=== PATIENT | male | born 1960 | race Caucasian/White ===

== ENCOUNTER 2020-05-25 06:55 | Outpatient (CLI) | payer OTHER, SELFPAY ==
--- NOTE | ~2020-05-25 | US_ITS ---
EXAMINATION: US abdomen complete EXAM DATE: 05/25/2020 07:49 INDICATION: R10.9 - Unspecified abdominal pain. TECHNIQUE: Multiple grayscale and Doppler images of the complete abdomen were obtained (by a technolo gist who performed the scan) and subsequently reviewed. There is no prior study for comparison. FINDINGS: The abdominal aorta is normal in caliber. Visualized portion IVC is patent. The pancreatic head a nd body are normal in appearance. The pancreatic tail is not visualized. There is echogenic liver parenchyma, hepatic steatosis. There are no focal liver lesions identified. There is no evidence of intrahepatic biliary duct dilation. Portal venous flow was seen in the he patopedal, normal direction and has normal Doppler waveform. Common bile duct measures 3-4 mm, which is normal. The gallbladder wall is normal in thickness, with expected amount of distention. No sonographic evidence of pericholecystic fluid. There is no cholel ithiases. Technologist performing exam reports patient did not demonstrate sonographic Schulte's sign. Please note that this sign is less reliable in patients who have received pain medication. Right kidney: There is normal contour and echogenicity. It measures 12.0 x 7.5 x 6.4 centimeters. There are no focal renal lesions identified. There is no hydronephrosis. Left kidney: There is normal contour and echogenicity. It measures 14.7 x 5.6 x 6.2 centimeters. T here are no focal renal lesions identified. There is no hydronephrosis. The spleen measures 13.1 centimeters and is morphologically normal. IMPRESSION: 1. Hepatic steatosis. Reviewed, dictated and finalized at location B. BACKER IMPRESSION: 1. Hepatic steatosis.
--- NOTE | ~2020-05-25 | XR_ITS ---
EXAMINATION: XR chest 2V EXAM DATE: 05/25/2020 07:20 INDICATION: Cough. TECHNIQUE: Frontal and lateral projections of the chest obtained and reviewed. Comparison is made to prior examination from 05/24/2011. FINDINGS: The lungs are clear. There are no pleural effusions. The cardiomediastinal silhouette is within normal limits. There is no pneumothorax suspected. Patient has diffuse idiopathic skeletal h yperostosis (DISH). IMPRESSION: No acute cardiopulmonary findings. Reviewed, dictated and finalized at location B. CTOR OF LOSS PREVENTION
== END 2020-05-25 06:56 | disposition home or self-care (01) ==
PROVIDERS: PCP Family Medicine; Visit Provider Nurse Practitioner Family
DX: R05 Cough (principal); K76.0 Fatty (change of) liver, not elsewhere classified; R10.9 Unspecified abdominal pain
CPT/HCPCS: 71046; 76700

== ENCOUNTER → 2020-06-17 01:51 | Outpatient (CLI) | payer OTHER, SELFPAY ==
[2020-06-17 19:33] LABS: SARS-CoV-2 RNA PCR Negative
== END ==
PROVIDERS: PCP Family Medicine; Visit Provider Internal Medicine Gastroenterology
DX: Z01.812 Encounter for preprocedural laboratory examination (principal); Z20.822 Contact with and (suspected) exposure to COVID-19
CPT/HCPCS: C9803; U0003; U0005

== ENCOUNTER 2020-06-21 01:43 | Day surgery (SDC) | payer OTHER, SELFPAY ==
[2020-06-08 12:44] VITALS: BMI 30.9
[2020-06-21 10:25] VITALS: BP 142/87; PULSE 92; RESP 20; TEMP 36.3; O2SAT 99; BMI 29.8
[2020-06-21 10:43] LABS: Glucose Point of Care 172 (65-105)
[2020-06-21] MEDS: LACTATED RINGERS 1,000 ML 150 ML IV CONT (10:43)
--- NOTE | 2020-06-21 11:09 | WPDANESEPPF ---
Anes - Initial Pre Proc Eval Procedure: Operation Date: 06/21/20 11:30 Proposed Procedures p Esophagogastroduodenoscopy - uSdarshan Higgins MD Date/Time: 06/21/20 11:09 Surgeon: Sudarshan Higgins MD Pre Op Diagnosis: epigastric pain Patient Data Age: 60 Gender: M Height: 6 ft 7 in Weight: 120.3 kg Last Vital Signs Temp 97.3 F L 06/21/20 10:25 Pulse 92 06/21/20 10:25 Resp 20 06/21/20 10:25 BP 142/87 H 06/21/20 10:25 Pulse Ox 99 06/21/20 10:25 Allergies Allergy/AdvReac Type Severity Reaction Status Date / Time Penicillins Allergy Unknown Unknown Verified 06/21/20 10:22 Home Medications Medication Instructions Recorded Confirmed Type allopurinol 300 mg tablet 300 mg PO DAILY #90 tablet 10/25/19 06/21/20 Rx levothyroxine 88 mcg tablet 88 mcg PO DAILY #90 tablet 05/08/20 06/21/20 Rx lisinopril 10 mg tablet 10 mg PO DAILY #30 tablet 05/23/20 06/21/20 Rx omeprazole 40 mg capsule,delayed 40 mg PO DAILY #30 cap 05/23/20 06/21/20 Rx release blood sugar diagnostic #100 ea 05/24/20 05/24/20 Rx blood-glucose meter #1 ea 05/24/20 05/24/20 Rx lancets #100 ea 05/24/20 05/24/20 Rx lancets #100 ea 05/24/20 05/24/20 Rx trazodone 50 mg tablet 50 mg PO .qhs #30 tablet 05/24/20 06/21/20 Rx warfarin 2 mg tablet 2 mg PO DAILY #90 tablet 05/24/20 05/24/20 Rx warfarin 6 mg tablet 6 mg PO DAILY #90 tablet 05/24/20 05/24/20 Rx empagliflozin 10 mg tablet 10 mg PO DAILY #90 tablet 06/21/20 Rx Laboratory Tests 06/21/20 10:39 POC Capillary Glucose 172 mg/dl H mg/dl (65-105) Patient hx anesthesia problems: none Family hx anesthesia problems: none PMFSH Past Medical History Medical History BMI 30.0-30.9,adult BMI 31.0-31.9,adult Congestion of nasal sinus Family History Family History Father , Stage 4 cancer No problems noted. Mother No problems noted. 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 Questions were solicited and answers provided to the satisfaction of the patient/family/POA.
--- NOTE | 2020-06-21 11:19 | PM.HPGS ---
History of Present Illness History of Present Illness Consent: Risks, benefits, and alternatives have been discussed and questions answered. Patient agrees to proceed with procedure. Chief complaint: epigastric pain Narrative: Ziggy Dorsey is a 60 year old male with epigastric pain after eating spicy food or drinking alcohol, abdominal ultrasound only fatty liver, blood work unremarkable Review of Systems Constitutional: Constitutional: Denies headache(s) and Denies weakness Eyes: Eyes: Denies blurry vision ENT: Reports Normal hearing present, Denies headache(s) and Denies neck pain Cardiovascular: Cardiovascular: Denies chest pain and Denies dyspnea Respiratory: Respiratory: Denies dyspnea Gastrointestinal: Gastrointestinal: Reports no additional gastrointestinal complaints Genitourinary: Genitourinary: Denies dysuria Musculoskeletal: Musculoskeletal: Denies neck pain Integumentary/Breasts: Skin/Breast: Denies dry skin Neurologic: Reports Normal hearing present, Denies headache(s) and Denies weakness Psychiatric: Psychiatric: Denies anxiety Endocrine: Endocrine: Denies change in body appearance Hematologic/Lymphatic: Hematologic/Lymphatic: Denies easy bleeding Allergic/Immunologic: Allergic/Immunologic: Denies urticaria PMFSH Past Medical History Medical History BMI 30.0-30.9,adult BMI 31.0-31.9,adult Congestion of nasal sinus Family History Family History Father , Stage 4 cancer No problems noted. Mother No problems noted. 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 Gender identity (if verbalized by the patient): Male Meds Home Medications and Allergies Home Medications Medication Instructions Recorded Confirmed Type allopurinol 300 mg tablet 300 mg PO DAILY #90 tablet 10/25/19 06/21/20 Rx levothyroxine 88 mcg tablet 88 mcg PO DAILY #90 tablet 05/08/20 06/21/20 Rx lisinopril 10 mg tablet 10 mg PO DAILY #30 tablet 05/23/20 06/21/20 Rx omeprazole 40 mg capsule,delayed 40 mg PO DAILY #30 cap 05/23/20 06/21/20 Rx release blood sugar diagnostic #100 ea 05/24/20 05/24/20 Rx blood-glucose meter #1 ea 05/24/20 05/24/20 Rx lancets #100 ea 05/24/20 05/24/20 Rx lancets #100 ea 05/24/20 05/24/20 Rx trazodone 50 mg tablet 50 mg PO .qhs #30 tablet 05/24/20 06/21/20 Rx warfarin 2 mg tablet 2 mg PO DAILY #90 tablet 05/24/20 05/24/20 Rx warfarin 6 mg tablet 6 mg PO DAILY #90 tablet 05/24/20 05/24/20 Rx empagliflozin 10 mg tablet 10 mg PO DAILY #90 tablet 06/21/20 Rx Allergies Allergy/AdvReac Type Severity Reaction Status Date / Time Penicillins Allergy Unknown Unknown Verified 06/21/20 10:22 Vital Signs Vital Signs - 24 hr 06/21/20 10:25 Temperature 97.3 F L Pulse Rate 92 Respiratory Rate 20 Blood Pressure 142/87 H Pulse Oximetry 99 Exam Const: General: comfortable and no acute distress HENMT: General nose exam: Normal nares present Eyes: General: appearance normal, both eyes and all related structures Neck: Neck: no JVD Resp: Auscultation: clear to auscultation bilaterally Cardio: Rate: regular rate Rhythm: regular rhythm GI: Inspection: non-distended GI Palp: Yes Soft to palpation Skin: General skin exam: normal color Neuro: General: gait normal Speech: normal speech Extrem: General: normal to inspection Psych: Mental Status: mental status grossly normal Assessment and Plan Assessment and plan (1) Epigastric pain: Code(s): R10.13 - Epigastric pain Status: Acute Assessment and Plan: egd with rene dasilva
[2020-06-21 11:35] VITALS: BP 135/80; PULSE 81; RESP 28; O2SAT 93
[2020-06-21 11:45] VITALS: BP 133/90; PULSE 77; RESP 27; O2SAT 95
[2020-06-21 11:55] VITALS: BP 142/75; PULSE 74; RESP 17; O2SAT 97
== END 2020-06-21 12:14 | disposition home or self-care (01) ==
PROVIDERS: PCP Family Medicine; Visit Provider Internal Medicine Gastroenterology
PROC: 0DJ08ZZ Inspection of Upper Intestinal Tract, Via Natural or Artificial Opening Endoscopic (ICD-10-PCS; CPT 43235; principal; 2020-06-21 11:30)
DX: K22.70 Barrett's esophagus without dysplasia (principal); K44.9 Diaphragmatic hernia without obstruction or gangrene; K29.70 Gastritis, unspecified, without bleeding; K76.0 Fatty (change of) liver, not elsewhere classified; Z79.01 Long term (current) use of anticoagulants; Z79.84 Long term (current) use of oral hypoglycemic drugs
CPT/HCPCS: 43239; 88305; 88313; J2704; J7120

== ENCOUNTER → 2021-02-13 08:30 | Outpatient (CLI) | payer OTHER, SELFPAY ==
[2021-02-13 20:05] LABS: SARS-CoV-2 RNA PCR Negative
== END ==
PROVIDERS: PCP Nurse Practitioner Adult Health; Visit Provider Nurse Practitioner Adult Health
DX: R09.81 Nasal congestion (principal); Z20.822 Contact with and (suspected) exposure to COVID-19
CPT/HCPCS: C9803; U0003; U0005

== ENCOUNTER → 2022-02-28 12:52 | Outpatient (CLI) | payer OTHER, MEDICAID, SELFPAY ==
--- NOTE | ~2022-02-28 | MR_ITS ---
EXAMINATION: MR venography brain DATE: 02/28/2022 14:42 INDICATION: Optic nerve edema. TECHNIQUE: Magnetic resonance venography (MRV) of the brain was performed without intravenous contras t. Maximum intensity projection 3D-reconstructions were obtained. COMPARISON: None. FINDINGS: The superior sagittal sinus, vein of Bradly, straight sinus, transverse sinuses, occipital sinus, and oblique sinuses are normal. IMPRESSION: 1. Normal venogram. Reviewed, dictated and finalized at location A. HER IMPRESSION: 1. Normal venogram.
--- NOTE | ~2022-02-28 | MR_ITS ---
EXAMINATION: MR orbits face neck wo/w con DATE: 02/28/2022 15:00 INDICATION: Optic nerve edema. TECHNIQUE: Magnetic resonance imaging (MRI) of the orbits was performed without and with 10 mL MultiH ance intravenous contrast. COMPARISON: None. FINDINGS: There are scattered areas of nonspecific increased T2-weighted signal intensity in the cere bral white matter, which is within normal limits for the patient's age. There is no intracranial hemo rrhage or acute infarct. There is a 10 x 5 mm mass of fat at the hypothalamus, consistent with a lipo ma. The ventricles are normal in size. There is mucosal thickening in sphenoid sinus. The optic nerve s, optic chiasm, extraocular muscles, and ocular globes are normal. The mastoid air cells are normal. IMPRESSION: 1. Normal orbits. 2. 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 Reviewed, dictated and finalized at location A. AL HURRICANE HUNTER
== END ==
PROVIDERS: PCP Internal Medicine
DX: H47.10 Unspecified papilledema (principal)
CPT/HCPCS: 70543; 70544; A9577

== ENCOUNTER → 2022-03-19 11:18 | Outpatient (CLI) | payer OTHER, SELFPAY ==
--- NOTE | ~2022-03-19 | CT_ITS ---
EXAMINATION: CT brain wo con DATE: 03/19/2022 11:36 INDICATION: Papilledema; rule out intracranial mass TECHNIQUE: Computed tomography (CT) of the head was performed without intravenous contrast. The mA wa s adjusted according to patient size. Iterative reconstruction technique was employed. Exam dose: 59 9.57 mGy-cm total exam DLP. COMPARISON: 02/28/2022 MR orbits, face, neck FINDINGS: No intracranial mass lesion or hemorrhage, midline shift or mass effect is evident. Moderat e cerebral volume loss, most prominent in the frontal lobes. Mild cerebellar volume loss. Bilateral carotid siphon internal carotid artery calcifications. There is nonspecific diminished atte nuation of the cerebral white matter, likely due to chronic small vessel ischemic changes. No subdural or epidural hematoma is detected. No orbital mass lesion is detected. Approximately 1.5 cm polyp or mucous retention cyst of the left sphenoid sinus. The included paranasa l sinuses and mastoid air cells are otherwise unremarkable. No fracture or bone destruction of the cranial vault. IMPRESSION: No intracranial mass lesion is detected Cerebral atherosclerosis and chronic small vessel ischemic changes of the cerebral white matter Cerebral and cerebellar volume loss, involving particularly the frontal lobes Approximately 1.5 cm sphenoid sinus polyp or mucous retention cyst Reviewed, dictated and finalized at Location A. Reviewed, dictated and finalized at location L. MIDWIFE IMPRESSION: No intracranial mass lesion is detected Cerebral atherosclerosis and chronic small vessel ischemic changes of the cereb ral white matter Cerebral and cerebellar volume loss, involving particularly the frontal lobes Approximately 1.5 cm sphenoid sinus polyp or mucous retention cyst
== END ==
PROVIDERS: PCP Internal Medicine
DX: H47.10 Unspecified papilledema (principal); I67.2 Cerebral atherosclerosis; J33.8 Other polyp of sinus
CPT/HCPCS: 70450

== ENCOUNTER 2022-05-17 09:30 | Outpatient (RCR) | payer OTHER, SELFPAY ==
[2022-05-16 11:43] VITALS: BMI 32.7
[2022-05-16 14:05] VITALS: BMI 32.7
== END 2022-05-17 12:04 | disposition home or self-care (01) ==
LOC: ANHDMC 09:30
PROVIDERS: PCP Internal Medicine; Visit Provider Internal Medicine Endocrinology, Diabetes & Metabolism
DX: E11.65 Type 2 diabetes mellitus with hyperglycemia (principal); Z71.3 Dietary counseling and surveillance; Z71.89 Other specified counseling
CPT/HCPCS: 97802; G0108

== ENCOUNTER 2024-03-04 13:50 | Outpatient (CLI) | payer OTHER, SELFPAY ==
--- NOTE | ~2024-03-04 | XR_ITS ---
Clinical Indication: Cough PA and lateral views of the chest: Comparison: 05/25/2020 Findings: The lungs are clear, without evidence of focal consolidation or pleural effusion. Cardiome diastinal silhouette is within normal limits. Bones and soft tissues are unremarkable. Impression: Normal chest. Reviewed, dictated and finalized at location . NER OPERATOR Impression: Normal chest.
== END 2024-03-04 13:51 | disposition home or self-care (01) ==
PROVIDERS: PCP Nurse Practitioner Adult Health; Visit Provider Nurse Practitioner Adult Health
DX: E03.9 Hypothyroidism, unspecified (principal); R05.9 Cough, unspecified
CPT/HCPCS: 36415; 71046; 84443

== ENCOUNTER 2024-04-13 07:59 | Outpatient (CLI) | payer OTHER, SELFPAY ==
--- NOTE | ~2024-04-13 | CT_ITS ---
CT of the Abdomen: Indication: Adrenal gland disorder Technique: 2.5 mm axial scans were obtained through the abdomen prior to and following intravenous a dministration of 100 cc of Omnipaque 350. Dose reduction technique was used on this scan by utilizing automated exposure control and iterative reconstruction technique. The dose-length product (DLP) was 2225.74 mGy-cm. Findings: Scans through the lung bases are unremarkable. The liver, spleen, pancreas, right adrenal and, and kidneys are within normal limits. Gallbladder abs ent. 2 cm left adrenal gland nodule demonstrates Hounsfield units of 0 on precontrast images, compati ble with benign adenoma. No evidence of aortic aneurysm. No lymphadenopathy. Visualized bowel loops are unremarkable.. No ascites. Impression: 2 cm left adrenal adenoma. Reviewed, dictated and finalized at [facility]. HANDISE COORDINATOR Impression: 2 cm left adrenal adenoma.
--- NOTE | ~2024-04-13 | MR_ITS ---
EXAMINATION: MR brain/brain stem wo/w con DATE: 04/13/2024 09:01 INDICATION: Disorder of pituitary gland TECHNIQUE: Magnetic resonance imaging (MRI) of the brain and brainstem was performed without and with 20 mL Multihance intravenous contrast. Whole-brain sequences included sagittal T1-weighted FSE, axia l diffusion-weighted FS EPI, axial T2*-weighted GRE, axial T2-weighted FLAIR Propeller, and axial T2- weighted Propeller. Small [id number] sequences included sagittal and coronal T1-weighted FSE cente red at the pituitary. Postcontrast sequences included small [id number] coronal T1-weighted FSE in a time course and sagittal T1-weighted FSE and whole-brain axial T1-weighted FSE. Apparent diffusion coefficient (ADC) maps were created. COMPARISON: Head CT dated 03/19/2022 and brain MR dated 02/28/2022 FINDINGS: There are no areas of restricted diffusion to suggest acute infarction. No intracranial hemorrhage. N o significant change in a 10 x 6 x 5 mm T1 hyperintense lipoma at the hypothalamus with coarse benign macroscopic fat attenuation and associated small region of calcification on the prior CT. No other i ntracranial mass lesion. The pituitary appears normal within the sella with no abnormally enhancing o r hypoenhancing lesions. The pituitary stalk remains midline. There are scattered areas of nonspecifi c increased T2-weighted signal intensity in the cerebral white matter, predominantly involving the de ep and periventricular white matter. There are no intraparenchymal signal abnormalities seen on the o ther pulse sequences. The ventricles are symmetric and normal in size. There are no abnormal extra-ax ial fluid collections. Flow voids are seen in the cerebral arteries on the T2-weighted sequences cons istent with their expected patency. Mild mucosal thickening in the bilateral ethmoid, maxillary and s phenoid sinuses with chronic peripherally enhancing mucous retention cyst in the left sphenoid sinus. Visualized orbits and soft tissues are unremarkable. There are no areas of abnormal enhancement on t he post contrast images. IMPRESSION: 1. Normal for age brain with mild scattered white matter T2 hyperintensity consistent with chronic sm all vessel ischemic disease. 2. Normal appearing pituitary with no evident hyperenhancing/hypoenhancing lesions and with midline p ituitary stalk. 3. Chronic left sphenoid sinus mucous retention cyst. Reviewed, dictated and finalized at location A. LE LABELER IMPRESSION: 1. Normal for age brain with mild scattered white matter T2 hyperintensity cons istent with chronic small vessel ischemic disease. 2. Normal appearing pituitary with no evident hyperenhancing/hypoenhancing lesi ons and with midline pituitary stalk. 3. Chronic left sphenoid sinus mucous retention cyst.
[2024-04-13 08:25] LABS: Estimated Glomerular Filt Rate > 60
== END 2024-04-13 08:00 | disposition home or self-care (01) ==
LOC: MICIMG 08:00
PROVIDERS: PCP Nurse Practitioner Adult Health; Visit Provider Internal Medicine Endocrinology, Diabetes & Metabolism
DX: J34.1 Cyst and mucocele of nose and nasal sinus (principal); R90.82 White matter disease, unspecified; E27.9 Disorder of adrenal gland, unspecified
CPT/HCPCS: 70553; 74170; A9577; Q9967

== ENCOUNTER 2024-11-02 10:39 | Outpatient (CLI) | payer OTHER, SELFPAY ==
--- NOTE | ~2024-11-02 | XR_ITS ---
EXAM/ PROCEDURE: XR elbow LT 2V, XR forearm LT 2V - 11/02/2024 10:42 CDT HISTORY: 64 years old Male with W19.XXXA - Unspecified fall, initial encounter COMPARISON: None available TECHNIQUE: Three view(s) FINDINGS/ IMPRESSION: There are no fractures or dislocations.Joint space narrowing, subchondral sclerosis, subchondral cyst formation and osteophyte formation, compatible with mild osteoarthritis. Reviewed, dictated and finalized at location A.
--- OUTSIDE RECORDS SUMMARY | 2024-11-02 11:13 | XMS_ITS | Encounter Summary ---
Author Organization [facility] - [facility] Address [facility] [place] [address] Care Team Providers Care Mushroom Sorter Grader Name Role Phone None, Provider Primary Care Provider Amrita ble Encounter Details Date Type Department Care Team (Latest Contact Info) Description 01/02/2022 PT [employer] Message Enc [facility] Medical Group Multispecialty Care - [address] [place] [address] Mychart, [facility] Provider Reschedule Appointment Social History Tobacco Use Types Packs/Day Years Used Date Smoking Tobacco: Never Smokeless Tobacco: Never Comments:counseled by Dr Iveth manzanares Alcohol Use Standard Drinks/Week Comments Yes 0 (1 standard drink = 0.6 oz pur e alcohol) on occas PHQ-2 Answer Date Recorded PHQ-2 Score - If the patient scores above 3, please move on to questions 3-9 0 12/27/2021 Sex and Gender Information Value Date Recorded Sex Assigned at Not on file 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 No / Unsure 12/27/2021 12:28 PM CDT documented as of this encounter Functional Status * RETIRED Are you deaf or do you have serious difficulty hearing Answer Date of Assessment Author Status No 05/23/2021 5:23 PM CAN FILLING AND CLOSING MACHINE TENDER Activ e * RETIRED Are you blind or do you have serious difficulty seeing, even when wearing glasses? Answer Date of Assessment Author Status No 05/23/2021 5:23 PM CAN FILLING AND CLOSING MACHINE TENDER Activ e * Do you have serious difficulty walking or climbing stairs? Answer Date of Assessment Author Status No 05/23/2021 5:23 PM Tish Taylor RN Active * Do you have difficulty dressing or bathing? Answer Date of Assessment Author Status No 05/23/2021 5:23 PM Tish Taylor RN Active * Because of a physical, mental, or emotional condition, do you have difficulty doing errands alone such as visiting a doctor's office or shopping? Answer Date of Assessment Author Status No 05/23/2021 5:23 PM Tish Taylor RN Active documented as of this encounter Mental Status * Because of a physical, mental, or emotional condition, do you have serious difficulty concentrating, remembering, or making decisions? Answer Entry Date Author Status No 05/23/2021 5:23 PM Tish Taylor RN Active documented in this encounter Plan of Treatment Not on file documented as of this encounter Visit Diagnoses Not on filedocumented in this encounter Care Teams Mushroom Sorter Grader Relationship Specialty Start Date End Date None, Provider, PCP - General UNKNOWN PHYSICIAN SPECIALTY 08/17/23 documented as of this encounter
--- OUTSIDE RECORDS SUMMARY | 2024-11-02 11:13 | XMS_ITS | Encounter Summary ---
Author Organization [facility] - [facility] Address [address] [place] [address] Care Team Providers Care Merchandise Complaint Adjuster Name Role Phone None, Provider Primary Care Provider Amrita balbuena Encounter Details Date Type Department Care Team (Latest Contact Info) Description 09/02/2022 MyChart Message Enc [facility] Medical Group Multispecialty Care - [place] [address] [place] [address] [address] [place] [address] [place] [address] [place] [address] [address] [place] [address] Blood pressure medication patient Social History Tobacco Use Types Packs/Day Years [...] on file 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 No / Unsure 08/13/2022 3:42 PM CDT documented as of this encounter Functional Status * RETIRED Are you deaf or do you have serious difficulty hearing Answer Date of Assessment Author Status No 05/23/2021 5:23 PM PREFORMING MACHINE OPERATOR Activ e * RETIRED Are you blind or do you have serious difficulty seeing, even when wearing glasses? Answer Date of Assessment Author Status No 05/23/2021 5:23 PM PREFORMING MACHINE OPERATOR Activ e * Do you have serious [...] on filedocumented in this encounter Care Teams Merchandise Complaint Adjuster Relationship Specialty Start Date End Date None, Provider, PCP - General UNKNOWN PHYSICIAN SPECIALTY 08/17/23 documented as of this encounter
--- OUTSIDE RECORDS SUMMARY | 2024-11-02 11:13 | XMS_ITS | Clinical Summary ---
Author Organization [facility] Address [address] [place] [address] Care Team Providers Care Gateman Name Role Phone None, Provider MD Primary Care Provider Unavaila ble Allergies Active Allergy Reactions Criticality Noted Date Comments Penicillins Rash Low 05/23/2021 Medications allopurinol (ZYLOPRIM) 300 MG tabletIndications:G outy arthritis Take 1 tablet (300 mg total) by mouth daily. 90 tablet 1 2 Active omeprazole (PRILOSEC) 40 MG capsuleIndications: Gastroesophageal reflux disease without esophagitis Take 1 capsule (40 mg total) by mouth daily. 90 capsule 1 2 Active levothyroxine (SYNTHROID) 100 MCG tabletIndications:A cquired hypothyroidism Take 1 tablet (100 mcg total) by mouth daily. 90 tablet 3 2 Active Semaglutide, 1 MG/DOSE, (OZEMPIC, 1 MG/DOSE,) 4 MG/3ML Solution Pen-injectorIndicat ions:Type 2 diabetes mellitus with hyperglycemia, without long-term current use of insulin ([facility]) Inject 1 mg into the skin weekly. 3 mL 11 2 Active gabapentin (NEURONTIN) 100 MG capsuleIndications: Thoracic radiculopathy Take 1 capsule (100 mg total) by mouth 3 (three) times daily. 90 capsule 1 3 Active glyBURIDE-metFORMIN (GLUCOVANCE) 5-500 MG tabletIndications:T ype 2 diabetes mellitus with hyperglycemia, without long-term current use of insulin ([facility]/HCC HHS/HCC) Take 2 tablets by mouth 2 (two) times daily with meals. 180 tablet 1 3 Active rosuvastatin (CRESTOR) 20 MG tabletIndications:T ype 2 diabetes mellitus with hyperglycemia, without long-term current use of insulin ([facility] HHS/HCC),Hyperlipid emia associated with type 2 diabetes mellitus ([facility]/HCC HHS/HCC) Take 1 tablet (20 mg total) by mouth nightly at bedtime. 90 tablet 1 3 Active rivaroxaban (XARELTO) 20 MG Tab tabletIndications:H istory of pulmonary embolism,Chronic atrial fibrillation ([facility]/HCC HHS/HCC) Take 1 tablet (20 mg total) by mouth daily. 30 tablet 6 3 Active lisinopril (PRINIVIL) 40 MG tabletIndications:H ypertension associated with diabetes (CMS/HCC HHS/HCC),Hypertensi on associated with type 2 diabetes mellitus ([facility] HHS/HCC) Take 1 tablet by mouth once daily 90 tablet 3 Active Active Problems Problem Noted Date Diagnosed Date Screening for colon cancer 01/10/2022 Overview (01/10/2022): Added automatically from request for surgery [id number] RUQ pain 01/10/2022 Overview (01/10/2022): Added automatically from request for surgery [id number] Hiatal hernia 01/10/2022 Overview (01/10/2022): Added automatically from request for surgery [id number] Diverticulosis 01/10/2022 Overview (01/10/2022): Added automatically from request for surgery [id number] Diabetic foot infection ([facility]) 2021 Cellulitis 05/23/2021 Uncontrolled type 2 diabetes mellitus 10/18/2020 Atrial fibrillation ([facility] HHS/HCC) 09/11/2020 Hypercholesterolemia 09/11/2020 Hypertensive disorder 09/11/2020 Hypothyroidism 09/11/2020 Encounters Date Type Department Care Team Description 09/27/2024 Scan HEALTH INFO SRVCS Scanned, Doc [facility] 08/31/2024 Scan MG HEALTH INFO SRVCS Scanned, Doc [facility] Stress Test (SCAN) 08/23/2024 Scan [facility] HEALTH INFO SRVCS Scanned, Doc [facility] from Last 3 Months Immunizations Immunization Administration Dates Next Due Influenza Adult (Generic) 01/14/2019 Pneumococcal (Pneumovax 23) 08/14/2017 Shingrix 10/15/2017,08/14/2017 Tdap (Boostrix) 05/23/2021 Family History Medical History Relation Comments Cancer Father Diabetes Father Dementia Mother Relation Status Comments Father Mother Alive Social History Tobacco Use Types Packs/Day Years Used Date Smoking Tobacco: Never Smokeless Tobacco: Never Tobacco Cessation:Counseling Given: Yes Comments:counseled by Dr Gimenez Alcohol Use Standard Drinks/Week Comments Yes 0 (1 standard drink = 0.6 oz pur e alcohol) on occas PHQ-2 Answer Date Recorded PHQ-2 Score - If the patient scores above 3, please move on to questions 3-9 0 12/27/2021 Sex and Gender Information Value Date Recorded Sex Assigned at Not on file 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 Gender Identity Not on file Sexual Orientation Not on file Last Filed Vital Signs Vital Sign Reading Time Taken Comments Blood Pressure 123/99 08/17/2023 11:12 AM CDT Pulse 71 08/17/2023 11:12 AM CDT Temperature 36.3 C (97.3 F) 08/17/2023 11:12 AM CDT Respiratory Rate 16 08/17/2023 11:12 AM CDT Oxygen Saturation 97% 08/17/2023 11:12 AM CDT Inhaled Oxygen Concentration - - Weight 131.5 kg (290 lb) 08/17/2023 11:12 AM CDT Height 200.7 cm (6' 7) 08/17/2023 11:12 AM CDT Body Mass Index 32.67 08/17/2023 11:12 AM CDT Plan of Treatment Health Maintenance Due Date Last Done Comments Kidney Health Evaluation 1960 Diabetes: Retinopathy Eye Exam 01/19/1978 Pneumococcal Vaccine: 50+ Years (2 of 2 - PCV) 08/14/2018 08/14/2017 Annual Physical 11/09/2022 11/09/2021 Lipid Panel 11/12/2022 11/12/2021 Hemoglobin A1C 04/12/2023 10/10/2022, 1106/2021, 11/09/2021, Additional history exists COVID-19 Vaccine ( - season) 2023 PHQ-2 (Physician [place]) 03/17/2024 DTaP, Tdap and Td Vaccines (2 - Td or Tdap) 05/24/2031 05/23/2021 Colorectal Cancer Screening Colonoscopy (10 Years) 03/06/2032 03/06/2022 RSV Immunization or 60+ Years (1 - 1-dose 75+ series) 01/19/2035 Zoster Vaccines Completed 10/15/2017, 08/14/2017 Hepatitis C Completed 11/20/2021 Meningococcal B Vaccine Aged Out No l onger eligible based on patient's age to complete this topic Meningococcal Vaccine Aged Out No belen [place] eligible based on patient's age to complete this topic RSV Immunizations Under 20 Months Aged Out No longer eligible based on patient's age to complete this topic Procedures Procedure Name Priority Date/Time Associated Diagnosis Comments STRESS TEST (SCAN ORDER) 08/31/2024 HEMOGLOBIN, GLYCOSYLATED Routine 01/18/2022 Type 2 diabetes mellitus with hyperglycemia, without long-term current use of insulin HEPATITIS C ANTIBODY Routine 11/20/2021 3:27 PM CDT Right upper quadrant abdominal pain LIPID PANEL Routine 11/12/2021 10:08 AM CDT Annual physical exam from Last 3 Months or Most Recently Relevant to Health Maintenance Results * STRESS TEST (SCAN ORDER) (08/31/2024) 08/31/2024 us Doc [facility] Scanned SCANNING Final Resu lt * HEMOGLOBIN, GLYCOSYLATED (01/18/2022) HGB A1C 8.1 % MG[address], [place] 01/18/2022 us Ludivina Gimenez MD LABORATORY Final Result -[address], [place] [address] [facility] [address] [place] [address], * HEPATITIS C AB ([facility]) (11/20/2021 3:27 PM CDT) HEPATITIS C AB NON-REACTI VE NON-REACT DEB 11/21/2021 6:59 PM CDT [facility] Comment: ANTIBODIES TO HCV NOT DETECTED. DOES NOT EXCLUDE THE POSSIBILITY OF EXPOSURE TO HCV. 11/20/2021 3:27 PM CDT Ludivina Gimenez MD LABORATORY Final Result [facility] [address] [place] [address], [place] [phone] [id number] * (ABNORMAL) LIPID PANEL (11/12/2021 10:08 AM CDT) Pathologist [facility] [place] CHOLESTEROL 215(H) <200 MG/DL 11/12/2021 3:23 PM CDT [facility] TRIGLYCERIDES 173(H) <150 MG/DL 11/12/2021 3:23 PM CDT [facility] HDL 54 >40 MG/DL 11/12/2021 3:23 PM CDT [facility] LDL-C 126(H) <100 MG/DL 11/12/2021 3:23 PM CDT [facility] VLDL CALCULATION 35(H) 5 - 28 MG/DL 11/12/2021 3:23 PM CDT [facility] CHOL/HDL RATIO 4.0 0.0 - 4.0 11/12/2021 3:23 PM CDT [facility] LDL/HDL 2.3(H) 0.41 - 2.13 11/12/2021 3:23 PM CDT [facility] NON HDL CHOLESTEROL 161(H) <140 MG/DL 11/12/2021 3:23 PM CDT [facility] 11/12/2021 10:0 8 AM CDT Ludivina Gimenez MD LABORATORY Final Result [facility] [address] [place] [address], from Last 3 Months or Most Recently Relevant to Health Maintenance Insurance CIG Advance Directives * Full Code (Latest Code Status on File) Date Activated Date Inactivated Comments 05/23/2021 1:11 PM 05/25/2021 4:41 PM Care Teams Gateman Relationship Specialty Start Date End Date None, Provider, PCP - General UNKNOWN PHYSICIAN SPECIALTY 08/17/23
--- OUTSIDE RECORDS SUMMARY | 2024-11-02 11:13 | XMS_ITS | Clinical Summary ---
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 07/30/2022 Active glimepiride (AMARYL) 2 mg tablet TAKE 2 TABLETS BY MOUTH TWICE DAILY BEFORE MEAL(S) 07/08/2022 Active Levothyroxine 100 mcg Capsule Take 100 mcg by mouth daily in the morning. 09/22/2012 Active lisinopriL (PRINIVIL) 40 mg tablet Take 40 mg by mouth daily. 03/18/2022 Active metFORMIN (GLUCOPHAGE XR) 500 mg Extended Release 24 hour tablet Take 500 mg by mouth 2 times daily with meals. 07/08/2022 Active Xarelto 20 mg Tablet Take 20 mg by mouth daily. Active sildenafiL 100 mg tablet Take 100 mg by mouth. Active tadalafiL 20 mg tablet Take 20 mg by mouth. Active amitriptyline (ELAVIL) 25 mg tablet Take 1 Tablet (25 mg) by mouth daily at bedtime. 30 Tablet 5 09/23/2022 Active empagliflozin (Jardiance) 10 mg tablet Take 1 Tablet by mouth daily. Active multivitamin (DAILY-CATHI) tablet Take 1 Tablet by mouth daily. Active Linzess 145 mcg capsule Take 145 mcg by mouth 1 time daily as needed. Active Active Problems No known active problems Encounters Date Type Department Care Team Description 10/06/2024 Prep for Surgery [facility] [address] [place] [address] Carolin Anglin MD Adrenal mass 1 cm to 4 cm in diameter (Primary Dx) 10/04/2024 Prep for Surgery [facility] Cesar Fernanda [facility] [address] [facility] [address] [place] [address] Carolin Anglin MD Adrenal mass 1 cm to 4 cm in diameter (Primary Dx) 08/12/2024 8:58 AM CDT - 08/12/2024 11:59 PM CDT Hospital Encounter [facility] Pre Surgical Assessment [address] [place] [address] Carolin Anglin MD Discharge Disposition: Home or Self Care 08/10/2024 11:59 PM CDT Anesthesia Event [facility] Operating Room [address] [place] [address] Sabina Montgomery NP 08/06/2024 External Device Data 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 Provider, Abstract from Last 3 Months Family History Medical History Relation Name Comments Cancer Father Cesar ruby Diabetes Father Cesar ruby Relation Name Status Comments Father Cesar ruby Social History Tobacco Use Types Packs/Day Years Used Date Smoking Tobacco: Never Alcohol Use Standard Drinks/Week Comments Yes 10 (1 standard drink = 0.6 oz pu re alcohol) Sex and Gender Information Value Date Recorded Sex Assigned at Not on file Legal Sex Male 8:30 AM CDT Gender Identity Not on file Sexual Orientation Not on file Last Filed Vital Signs Vital Sign Reading Time Taken Comments Blood Pressure 130/85 08/12/2024 9:12 AM CDT Pulse 79 08/12/2024 9:12 AM CDT Temperature 36.9 C (98.4 F) 05/25/2024 12:50 PM CDT Respiratory Rate - - Oxygen Saturation 92% 08/12/2024 9:12 AM CDT Inhaled Oxygen Concentration - - Weight 122.5 kg (270 lb) 10/29/2024 2:09 PM CDT Height 199.4 cm (6' 6.5) 10/29/2024 2:09 PM CDT Body Mass Index 30.81 10/29/2024 2:09 PM CDT Plan of Treatment Upcoming Encounters Date Type Department Care Team (Latest Contact Info) Description 11/10/2024 1:20 PM CDT Hospital Encounter [facility] Operating Room [address] [place] [address] [place] [address] [facility] [address] [place] [address] 11/10/2024 1:20 PM CDT Anesthesia Event [facility] Operating Room [address] [place] [address] [place] [address] [place] [address] 11/10/2024 1:20 PM CDT - 11/10/2024 3:45 PM CDT Surgery [facility] Operating Room [address] [place] [address] [place] [address] [address] LEFT LAPAROSCOPIC ADRENALECTOMY, POSSIBLE OPEN 11/25/2024 11:30 AM CDT Office Visit [facility] [address] [facility] [address] [place] [address] Davida Alvarez PA-C [address] [facility] [address] [place] [address] Scheduled Procedures Name Priority Associated Diagnoses Date/Ti me ADRENALECTOMY LAPAROSCOPIC LEFT ADRENAL ADENOMA 11/10/2024 1:20 PM CDT Health Maintenance Due Date Last Done Comments DIABETES ANNUAL FOOT EXAM 01/19/1978 DIABETES MICROALBUMIN ANNUAL SCREEN 01/19/1978 LDL CHOLESTEROL ANNUAL 01/19/1978 COLORECTAL SCREENING 01/19/2005 Colorectal Cancer Screening 01/19/2005 FIT-DNA Q 3 years 01/19/2005 FIT/FOBT Q 1 year 01/19/2005 Flex Sig/CT Colonography Q 5 years 01/19/2005 RSV VACCINE (60+ or ) (1 - Risk 60-74 years 1-dose series) 2020 DIABETES ANNUAL RETINAL EXAM 10/12/2023 10/11/2022, 07/04/2022 INFLUENZA VACCINE (#1) 2024 DIABETES HBA1C Q 6 MONTHS 05/04/20252024, 10/10/2022, 01/18/2022 DTAP/TDAP/TD VACCINES (2 - T d or Tdap) 05/24/2031 05/23/2021 ZOSTER VACCINE Completed 10/15/2017, 08/14/2017 Goals Goal Patient Goal Type Associated Problems Recent Progress Patient-Stated? Author Autogenerat ed Goal Care Plan Autogenerated Problem No Joycelyn Palacios, INSTRUCTIONAL MATERIALS DIRECTOR Procedures Procedure Name Priority Date/Time Associated Diagnosis Comments HEMOGLOBIN A1C Routine 11/01/2024 10:16 AM CDT COMPREHENSIVE METABOLIC PANEL Routine 11/01/2024 10:16 AM CDT Adrenal mass 1 cm to 4 cm in diameter CBC WITH DIFFERENTIAL Routine 11/01/2024 10:16 AM CDT Adrenal mass 1 cm to 4 cm in diameter BASIC METABOLIC PANEL Routine 08/18/2024 9:18 AM CDT CBC WITH DIFFERENTIAL Routine 08/18/2024 9:18 AM CDT EKG 12-LEAD Routine 08/12/2024 10:29 AM CDT Adrenal mass 1 cm to 4 cm in diameter TYPE AND SCREEN Routine 08/12/2024 10:12 AM CDT Adrenal mass 1 cm to 4 cm in diameter BASIC METABOLIC PANEL Routine 08/12/2024 10:12 AM CDT Adrenal mass 1 cm to 4 cm in diameter CBC WITH DIFFERENTIAL Routine 08/12/2024 10:12 AM CDT Adrenal mass 1 cm to 4 cm in diameter from Last 3 Months Results * (ABNORMAL) CBC WITH DIFFERENTIAL (11/01/2024 10:16 AM CDT) Only the most recent of3 resultswithin the time period is included. WBC 9.1 3.8 - 10.8 Thousand/ uL [facility] RBC 4.68 4.20 - 5.80 Million/u L [facility] HEMOGLOBIN 13.3 13.2 - 17.1 g/dL [facility] HEMATOCRIT 42.7 38.5 - 50.0 % [facility] MCV 91.2 80.0 - 100.0 fL [facility] MCH 28.4 27.0 - 33.0 pg [facility] MCHC 31.1(L) 32.0 - 36.0 g/dL [facility] Comment: For adults, a slight decrease in the calculated MCHC value (in the range of 30 to 32 g/dL) is most likely not clinically significant; however, it should be interpreted with caution in correlation with other red cell parameters and the patient's clinical condition. RDW 12.2 11.0 - 15.0 % [facility] PLATELETS 216 140 - 400 Thousand/ uL [facility] MPV 10.1 7.5 - 12.5 fL [facility] NEUTROPHIL ABSOLUTE 6,880 1,500 - 7,800 cells/uL [facility] LYMPHOCYTE ABSOLUTE 1,128 850 - 3,900 cells/uL [facility] MONOCYTE ABSOLUTE 673 200 - 950 cells/uL [facility] EOSINOPHIL ABSOLUTE 337 15 - 500 cells/uL [facility] BASOPHILS ABSOLUTE 82 0 - 200 cells/uL [facility] NEUTROPHIL 75.6 % [facility] LYMPHOCYTES 12.4 % [facility] MONOCYTE 7.4 % [facility] EOSINOPHILS 3.7 % [facility] BASOPHILS 0.9 % [facility] Comment: [facility] [address] [place] [address] Ermelinda-Janetu Thi Vo Blood 11/01/2024 10:1 6 AM CDT 11/01/2024 10:16 AM CDT Carolin Anglin MD HEMATOLOGY ORDERABLES Fi nal Result Performing Organization Address [facility] Code Phone Number [facility] [phone] [place] [address] [place] [address] * (ABNORMAL) HEMOGLOBIN A1C (11/01/2024 10:16 AM CDT) HEMOGLOBIN A1C 9.3(H) <5.7 % of total Hgb [facility] Comment: For someone without known diabetes, a hemoglobin A1c value of 6.5% or greater indicates that they may have diabetes and this should be confirmed with a follow-up test. For someone with known diabetes, a value <7% indicates that their diabetes is well controlled and a value greater than or equal to 7% indicates suboptimal control. A1c targets should be individualized based on duration of diabetes, age, comorbid conditions, and other considerations. Currently, no consensus exists regarding use of hemoglobin A1c for diagnosis of diabetes for children. ESTIMATED AVERAGE GLUCOSE (MG/DL) 220 mg/dL [facility] ESTIMATED AVERAGE GLUCOSE (MMOL/L) 12.2 mmol/L [facility] Comment: Test Performed at: [place] [address] [place] [address] Alexa Mcmillan 11/01/2024 10:1 6 AM CDT 11/01/2024 10:16 AM CDT Carolin Anglin MD CHEMISTRY ORDERABLES Fin al Result Performing Organization Address City/[facility] Code Phone Number [facility] [phone] [facility] [place] [address] [place] [address] * (ABNORMAL) COMPREHENSIVE METABOLIC PANEL (11/01/2024 10:16 AM CDT) GLUCOSE 270(H) 65 - 99 mg/dL [facility] Comment: Fasting reference interval For someone without known diabetes, a glucose value >125 mg/dL indicates that they may have diabetes and this should be confirmed with a follow-up test. BUN 24 7 - 25 mg/dL [facility] CREATININE 0.94 0.70 - 1.35 mg/dL [facility] GFR 91 > OR = 60 mL/min/1. 73m2 [facility] BUN/CREAT RATIO SEE NOTE: 6 (calc) [facility] Comment: Not Reported: BUN and Creatinine are within reference range. SODIUM 137 135 - 146 mmol/L [facility] POTASSIUM 4.8 3.5 - 5.3 mmol/L [facility] CHLORIDE 101 98 - 110 mmol/L [facility] CO2 28 20 - 32 mmol/L [facility] CALCIUM 9.2 8.6 - 10.3 mg/dL [facility] TOTAL PROTEIN 6.9 6.1 - 8.1 g/dL [facility] ALBUMIN 3.9 3.6 - 5.1 g/dL [facility] GLOBULIN 3.0 1.9 - 3.7 g/dL (calc) [facility] ALBUMIN/GLOBULIN RATIO 1.3 1.0 - 2.5 (calc) [facility] BILIRUBIN TOTAL 0.4 0.2 - 1.2 mg/dL [facility] ALKALINE PHOSPHATASE 80 35 - 144 U/L [facility] AST 12 10 - 35 U/L [facility] ALT 14 9 - 46 U/L [facility] Comment: Test Performed at: [facility] [address] [address] [place] [address] Alexa Mcmillan Blood 11/01/2024 10:1 6 AM CDT 11/01/2024 10:16 AM CDT us Carolin Anglin MD CHEMISTRY ORDERABLES Fin al Result [facility] [phone] [place] [address] [address] [address] * (ABNORMAL) BASIC METABOLIC PANEL (08/18/2024 9:18 AM CDT) Only the most recent of2 resultswithin the time period is included. GLUCOSE 195(H) 65 - 99 mg/dL [facility] [place] Comment: Fasting reference interval For someone without known diabetes, a glucose value >125 mg/dL indicates that they may have diabetes and this should be confirmed with a follow-up test. BUN 15 7 - 25 mg/dL [facility] CREATININE 1.07 0.70 - 1.35 mg/dL [facility] [place] GFR 77 > OR = 60 mL/min/1. 73m2 [facility] BUN/CREAT RATIO SEE NOTE: (calc) [facility] Comment: Not Reported: BUN and Creatinine are within reference range. SODIUM 136 135 - 146 mmol/L [facility] POTASSIUM 4.4 3.5 - 5.3 mmol/L [facility] CHLORIDE 99 98 - 110 mmol/L [facility] CO2 29 20 - 32 mmol/L [facility] CALCIUM 9.3 8.6 - 10.3 mg/dL [facility] Comment: FASTING:YES FASTING: YES Test Performed at: [facility] [place] [address] [place] [address] [facility] 08/18/2024 9:18 AM CDT 08/18/2024 9:20 AM CDT us Carolin Anglin MD CHEMISTRY ORDERABLES Fin al Result [facility] [phone] [place] [address] [place] [address] * EKG 12-LEAD (08/12/2024 10:29 AM CDT) 08/12/2024 10:2 9 AM CDT Narrative INTERFACE SYSTEM - 08/12/2024 10:31 AM CDT [address] [address] Test Date: 2024-08-12 Pat Name: CESAR RUBY Department: 88 Room: Gender: Male 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: sherry : 1960 Requested By: CAROLIN RAHMAN Order Number: [id number] Rodrick MD: Trevor Rios Measurements Intervals [place] Rate: 84 P: 0 MT: 0 QRS: 261 QRSD: 96 T: 39 QT: 382 QTc: 451 Interpretive Statements Atrial fibrillation Right superior axis deviation Pulmonary disease pattern Abnormal ECG No previous ECG available for comparison Electronically Signed On 08-12-2024 10:31:41 CDT by Trevor Rios Procedure Note Trevor Rios MD - 08/12/[address] [address] Test Date: 2024-08-12 Pat Name: CESAR RUBY Department: 88 Room: Gender: Male 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: : 1960 Requested By: CAROLIN RAHMAN Order Number: [id number] Reading MD: Trevor Rios Measurements Intervals [place] Rate: 84 P: 0 MT: 0 QRS: 261 QRSD: 96 T: 39 QT: 382 QTc: 451 Interpretive Statements Atrial fibrillation Right superior axis deviation Pulmonary disease pattern Abnormal ECG No previous ECG available for comparison Electronically Signed On 08-12-2024 10:31:41 CDT by Trevor Rios us Carolin Anglin MD ECG ORDERABLES Final Re sult INTERFACE SYSTEM Refer to clinic/hospital department * TYPE AND SCREEN (08/12/2024 10:12 AM CDT) ABO GROUP A 08/12/2024 11:38 AM CDT [facility] RH (D) TYPE Negative 08/12/2024 11:38 AM CDT [facility] ANTIBODY SCREEN Negative 11:38 AM CDT [facility] [facility] Comment:t&s exp 08/23/2024 katherin ification needed Blood Venipuncture / Unknown 08/12/2024 10:12 AM CDT 08/12/2024 10:32 AM CDT us Cesar Lai MD BLOOD BANK ORDERABLES Edite d Result - Final [facility] [employer] [facility] CLIA# [id number] [place] [address] from Last 3 Months Additional Health Concerns Active Problems Noted Date Diagnosed Date Autogenerated Problem 10/01/2024 Insurance [facility] OPEN ACCESS HMO
--- OUTSIDE RECORDS SUMMARY | 2024-11-02 11:13 | XMS_ITS | Clinical Summary ---
Author Organization [facility] Address [address] [place] [address] Care Team Providers Care Production Maintenance Technician Name Role Phone Ludivina Gimenez MD Primary Care Provider [phone] Allergies Active Allergy Reactions Criticality Noted Date Comments Penicillin Hives,Rash Medium 03/25/2022 [place] Hives,Rash High 09/23/2022 Medications lisinopriL (PRINIVIL,ZESTRI L) 40 mg tabletIndication s:hypertension Take 1 tablet (40 mg total) by mouth every morning 3 Active levothyroxine (SYNTHROID) 100 mcg tabletIndication s:hypothyroidism Take 1 tablet (100 mcg total) by mouth manager communication before breakfast 2 Active glyburide-metfor min (GLUCOVANCE) 5-500 mg per tabletIndication s:type 2 diabetes mellitus Take 2 tablets by mouth 2 (two) times a day 2 Active Ozempic 1 mg/dose (4 mg/3 mL) pen injector injectionIndicat ions:type 2 diabetes mellitus Inject 1 mg under the skin once a week friday 2 Active rivaroxaban (XARELTO) 20 mg tabletIndication s:VTE Prophylaxis Take 1 tablet (20 mg total) by mouth daily with breakfast Stop taking Friday prior to surgery 2 Active sildenafiL (VIAGRA) 100 mg tabletIndication s:Erectile Dysfunction Take 1 tablet (100 mg total) by mouth as needed for erectile dysfunction Active amitriptyline (ELAVIL) 25 mg tablet Take 1 tablet (25 mg total) by mouth nightly Active gabapentin (NEURONTIN) 100 mg capsule Take 1 capsule (100 mg total) by mouth 3 (three) times a day 3 Active glimepiride (AMARYL) 2 mg tablet Take 2 tablets (4 mg total) by mouth 2 (two) times a day before breakfast and dinner 3 Active Linzess 72 mcg capsule TAKE 1 CAPSULE BY MOUTH BEFORE BREAKFAST 30 capsule 4 Active Active Problems Problem Noted Date Diagnosed Date Optic neuropathy, bilateral 07/05/2022 Optic disc edema 04/28/2022 Overview (04/28/2022): Referral from retinologist Abebe Tobias for bilateral disc edema with suspicion for NAION. Patient has a history of diabetes mellitus and In February 2022 he had worsening of vision of the left eye. Seen by Dr. Hewitt at [facility] and then by Dr. Tobias, who noted VA OS CF and optic nerve edema OU, diagnosing the patient with NAION OU.CT head w/o contrast and serum Bartonella henselae Ab were ordered and were reportedly normal. On follow-up visit at Apr 01 2022, VA OD stable at 20/40 and OS improved to 20/80. Calculus of gallbladder with acute on chronic cholecystitis without obstruction 04/25/2022 Cholecystitis 04/25/2022 Overview (04/25/2022): Added automatically from request for surgery [id number] Type 2 diabetes mellitus 03/25/2022 Hiatal hernia 01/10/2022 Overview (03/25/2022): Added automatically from request for surgery [id number] RUQ pain 01/10/2022 Overview (03/25/2022): Added automatically from request for surgery [id number] Atrial fibrillation 09/11/2020 Hypercholesterolemia 09/11/2020 Hypertensive disorder 09/11/2020 Hypothyroidism 09/11/2020 Encounters Date Type Department Care Team Description 08/31/2024 Orders Only [facility] Scanning, Provider from Last 3 Months Surgical History Surgery Date Site/Laterality Comments UPPER GASTROINTESTINAL ENDOSCOPY 03/17/2022 - 03/16/2023 Medical History Medical History Date Comments Atrial fibrillation (HCC) Hypertension Hyperlipidemia Type 2 diabetes mellitus Hypothyroidism Family History Medical History Relation Name Comments Diabetes Father Dementia Mother Relation Name Status Comments Father Mother Social History Tobacco Use Types Packs/Day Years Used Date Smoking Tobacco: Never Smokeless Tobacco: Never Tobacco Cessation:Counseling Given: Not Answered AUDIT-C Answer Date Recorded Q1: How often do you have a drink containing alc ohol? 2-3 times a week 05/13/2022 Q2: How many drinks containi ng alcohol do you have on a typical day when you are drinking? 5 or 6 05/13/2022 Q3: How often do you have si x or more drinks on one occasion? 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 Gender Identity Not on file Sexual Orientation Not on file Obstetrics History Last Filed Vital Signs Vital Sign Reading Time Taken Comments Blood Pressure 144/90 12/19/2022 9:39 AM CDT Pulse 93 12/19/2022 9:39 AM CDT Temperature 36.5 C (97.7 F) 05/13/2022 2:30 PM REFRIGERATION MANAGER Respiratory Rate 16 05/13/2022 2:40 PM REFRIGERATION MANAGER Oxygen Saturation 96% 12/19/2022 9:39 AM CDT Inhaled Oxygen Concentration - - Weight 132.4 kg (291 lb 12.8 oz) 12/19/2022 9:39 AM CDT Height 200.7 cm (6' 7.02) 12/19/2022 9:39 AM CD T Body Mass Index 32.86 12/19/2022 9:39 AM CDT Plan of Treatment Health Maintenance Due Date Last Done Comments Albumin Creatinine Ratio, Urine 1960 Colon Cancer Screening-Colonoscopy 1960 Depression Screening 1960 Hepatitis C Screening 1960 Prostate Cancer Screening-PSA 1960 eGFR 1960 Foot Exam 1960 Hepatitis B Screening 01/19/1978 Regular Well Visit/Exam 18-64 01/19/1978 Pneumococcal vaccine <65 (2 of 2 - PCV) 08/14/2018 0 08/14/2017 Lipid Panel 11/12/2022 11/12/2021 Hemoglobin A1C 04/12/2023 10/10/2022 Dilated Eye Exam 07/05/2023 07/04/2022 Influenza Vaccine (#1) 2024 01/14/2019 DTaP/Tdap/Td Vaccine (2 - Td or Tdap) 05/24/203111/2021 Zoster Vaccine Completed 10/15/2017, 08/14/2017 Medical Devices Implanted Type Area Mail Handlers Supervisor Device Identifier Shelf Expiration Date Model / Serial / Lot [employer] Hem-O-Tiffanie Ligate Nonabsorbable Cartridge Large [employer] Heart Latex Free [id number] - [id number] Implanted:Qty: 1 on 05/13/2022 by Rena Quevedo MD at [facility] [employer] [id number] 08/16/2025 [id number] / / [id number] Procedures Procedure Name Priority Date/Time Associated Diagnosis Comments SCAN - RADIOLOGY/IMAGING 08/31/2024 HEMOGLOBIN A1C Routine 10/10/2022 7:08 AM CDT from Last 3 Months or Most Recently Relevant to Health Maintenance Results * SCAN - RADIOLOGY/IMAGING (08/31/2024) Anatomical Region Laterality Modality Other us Provider Scanning Final Result * (ABNORMAL) Hemoglobin A1c (10/10/2022 7:08 AM CDT) Hgb A1C 7.6(H) 4.0 - 5.6 % [facility] Estimated Average Glucose 171 mg/dL [facility] Comment: The ADA recommends reporting an estimated Average Glucose (eAG) with all Hemoglobin A1c results using the equation derived from a study of 507 normal and diabetic adults. Minority populations were underrepresented and children were not included. (Diabetes Care 31:9443-6908, 2008). The eAG is not equivalent to a fasting glucose. Blood 10/10/2022 7:08 AM CDT 10/10/2022 7:15 AM CDT us Ari Juan MD LAB BLOOD ORDERABLES F inal Result [facility] [address] [facility] [place] [address] from Last 3 Months or Most Recently Relevant to Health Maintenance Insurance [employer] OPEN ACCESS [facility] [employer] [facility] Care Teams Production Maintenance Technician Relationship Specialty Start Date End Date Ludivina Gimenez MD [address] [place] [address] [phone] PCP - General Internal Medicine 01/30/22
== END 2024-11-02 10:40 | disposition home or self-care (01) ==
LOC: ANHBWCIMG 10:41
PROVIDERS: PCP Nurse Practitioner Adult Health; Visit Provider Nurse Practitioner Adult Health
DX: M25.522 Pain in left elbow (principal); W19.XXXA Unspecified fall, initial encounter
CPT/HCPCS: 73070; 73090